=== PATIENT | female | born 1955 | race Caucasian/White ===

== ENCOUNTER → 2019-06-09 14:50 | Outpatient (CLI) | payer OTHER, SELFPAY ==
--- NOTE | 2019-06-09 15:02 | BD_ITS ---
STUDY: DUAL ENERGY X-RAY ABSORPTIOMETRY / DXA REASON FOR EXAM: Female, 63 years old. Early menopause. Loss of height. TECHNIQUE: Bone Mineral Density (BMD) measurements of both forearms were obtained. COMPARISON: None. FINDINGS: Right Forearm: g/cm2 (0.758) / T-score (-1.5) / Z-score (-0.3) Left Forearm: g/cm2 (0.742) / T-score (-1.6) / Z-score (-0.5) BD/Dexa Bone Density/Append Skel IMPRESSION: The patient is considered osteopenic as outlined below according to World Darek Organization (WHO) criteria with a moderate fracture risk. Reference Information: The T-score is the number of standard deviations above or below the standard which is normal for young adults at their peak bone mineral density. The World Health Organization (WHO) interprets the T-scores as follows: Above -1 Normal bone density Between -1 and -2.5 Osteopenia Equal to / or below -2.5 Osteoporosis As a practical clinical guideline, osteopenia may be graded as follows: Mild -1 through -1.5 Moderate -1.6 through -2.0 Severe -2.1 through -2.4 The Z-score is the number of standard deviations above or below age-matched controls. A Z-score of less than -1.5 would be considered abnormal. References: 1. NIH Osteoporosis and Related Bone Diseases http://www.osteo.org 2. International Society for Clinical Densitometry http://www.iscd.org 3. National Osteoporosis Foundation http://www.nof.org Electronically Signed: Yo Mendoza, at 14:06 EST , Service support ,
== END ==
PROVIDERS: Family Provider Family Medicine; PCP Family Medicine; Referring Provider Orthopaedic Surgery; Visit Provider Orthopaedic Surgery
DX: M51.36 Other intervertebral disc degeneration, lumbar region (principal); M81.0 Age-related osteoporosis without current pathological fracture
CPT/HCPCS: 77081